=== PATIENT | female | born 1995 | race Two or more races ===

== ENCOUNTER 2018-11-06 18:42 | Emergency (ER) | payer MEDICAID ==
[~2018-11-06] VITALS: Ht 162.6 cm; Wt 68.0 kg
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
[2018-11-06 18:50] VITALS: BP 123/85
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
[2018-11-06] MEDS ORDERED: TYLENOL EXTRA500 MG ORAL (19:04)
--- NOTE | 2018-11-06 19:07 | NUR ---
HAND-OFF: Report given to DEBBI SHUKLA.
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
[2018-11-06 19:18] VITALS: BP 121/75
== END 2018-11-06 19:15 ==
LOC: EDBD 18:42 → EMR 19:12
DX: S46.811A Strain of other muscles, fascia and tendons at shoulder and upper arm level, right arm, initial encounter (principal); M25.511 Pain in right shoulder; Y09 Assault by unspecified means; M54.2 Cervicalgia
CPT/HCPCS: 99283